=== PATIENT | female | born 1935 | race Caucasian/White ===

== ENCOUNTER → 2021-08-20 | Outpatient (CLI) | payer OTHER ==
[~2021-08-20] MED LIST: ANORO ELLIPTA1 EACH INH; AREDS 2 PO; ECOTRIN81 MG PO; GLUCOTROL5 MG PO; HYDROCHLOROTHIA25 MG PO; JANUVIA100 MG PO; MELATONIN10 M2 PO; NORCO 5-325 TA1 EACH PO; NORVASC 5 MG TAB5 MG PO; OMEPRAZOLE20 MG PO; TENORMIN 50 MG50 MG PO; TYLENOL W/CODEIN1 E1 PO; ULTRAM50 MG PO; VITAMIN D32000 UNI1 PO
== END ==
LOC: EMI 08-16 09:00
DX: G40.909 Epilepsy, unspecified, not intractable, without status epilepticus (principal); G31.9 Degenerative disease of nervous system, unspecified
CPT/HCPCS: 70551